=== PATIENT | female | born 1935 | race Caucasian/White ===

== ENCOUNTER 2017-11-06 20:28 | Inpatient (IN) | payer OTHER ==
[~2017-11-06] VITALS: Ht 152.4 cm; Wt 74.8 kg
[2017-11-06] MEDS ORDERED: MORPHINE SULFATE 4 MG/ML CPJ (NOT FOR IM USE) IV STA (21:57)
[2017-11-06] MEDS ORDERED: ONDANSETRON HCL 4MG/2ML INJ IV STA (21:57)
[2017-11-06 23:31] LABS: CHLORIDE 96 mEq/L (98-107)
[2017-11-06 23:33] LABS: BASOPHILS % 0.3 % (0.0-2.0); EOSINOPHILS % 0.7 % (0.0-5.0); HEMATOCRIT. 30.2 % (36.0-48.0); HEMOGLOBIN. 10.4 g/dL (12.0-16.0); LYMPHOCYTES % 12.8 % (20.0-50.0); MEAN CORPUSCULAR HEMOGLOBIN 29.7 pg (28.0-32.0); MEAN CORPUSCULAR VOLUME 86.4 fL (81.0-99.0); MEAN PLATELET VOLUME 8.1 fl (7.4-10.4); MONOCYTES % 5.1 % (2.0-8.0); NEUTROPHILS % 81.1 % (40.0-76.0); PLATELET 224 x1000/uL (130-400); RED BLOOD CELL COUNT 3.49 mill/uL (4.2-5.4); RED CELL DISTRIBUTION WIDTH 13.4 % (11.6-14.6)
[2017-11-07] MEDS ORDERED: ASPIRIN 325MG EC TABLET PO NR
[2017-11-07] MEDS ORDERED: HEPARIN 25,000 UNITS PREMIX 500 ML IV ONE
[2017-11-07] MEDS ORDERED: HEPARIN 5000 UNITS/ML VIAL IV ONE
[2017-11-07] MEDS ORDERED: ONDANSETRON HCL 4MG/2ML INJ IV NR (00:15)
[2017-11-07] MEDS ORDERED: KCL 20MEQ/100ML PREMIX 100 ML IV NR (00:15)
[2017-11-07] MEDS ORDERED: MAGNESIUM 1 G PREMIX 100 ML IV NR (00:15)
[2017-11-07] MEDS ORDERED: ONDANSETRON HCL 4MG/2ML INJ IV PRN (00:30)
[2017-11-07] MEDS ORDERED: MORPHINE SULFATE 4 MG/ML CPJ (NOT FOR IM USE) IV PRN (00:30)
[2017-11-07] MEDS ORDERED: DOCUSATE SODIUM 100MG CAPSULE PO PRN (00:30)
[2017-11-07] MEDS ORDERED: CLONIDINE 0.1MG TABLET PO PRN (00:30)
[2017-11-07] MEDS ORDERED: DEXTROSE 50% WATER 50ML SYRINGE IV PRN (02:30)
[2017-11-07 02:45] VITALS: BP 130/42
[2017-11-07 03:57] VITALS: BP 139/49
[2017-11-07] MEDS ORDERED: NITROGLYCERIN OINT 1GM/INCH UDPKT TD NR (05:00)
[2017-11-07] MEDS ORDERED: HEPARIN 25,000 UNITS PREMIX 500 ML IV SCH (06:30)
[2017-11-07] MEDS: BLOOD SUGAR DIAGNOSTIC STRIP TEST SCH ×4 (06:48→20:25)
[2017-11-07] MEDS ORDERED: HEPARIN 5000 UNITS/ML VIAL IV PRN ×2 (07:00)
[2017-11-07] MEDS ORDERED: HEPARIN 5000 UNITS/ML VIAL IV SCH (07:00)
[2017-11-07] MEDS ORDERED: HEPARIN 25,000 UNITS PREMIX 500 ML IV PRN (07:00)
[2017-11-07 08:00] VITALS: BP 133/56
[2017-11-07] MEDS ORDERED: CLOPIDOGREL 75MG TABLET PO SCH (09:00)
[2017-11-07] MEDS ORDERED: CLOPIDOGREL 75MG TABLET PO NR (09:15)
[2017-11-07 09:16] LABS: PARTIAL THROMBOPLASTIN TIME 23.1 sec (23.4-31.0)
[2017-11-07 09:27] LABS: D-DIMER 1.7 mg/L FEU (<0.50)
[2017-11-07 10:50] LABS: T4 FREE 1.34 ng/dL (0.76-1.46)
[2017-11-07] MEDS: ASPIRIN 81MG TABLET PO SCH (10:59)
[2017-11-07] MEDS: ENOXAPARIN 80MG/0.8ML SYR SUBCUT SCH (11:10)
[2017-11-07] MEDS: SODIUM CHLORIDE 0.9% 1,000 ML IV SCH ×2 (11:11→21:30)
[2017-11-07] MEDS: AMLODIPINE 10MG TABLET PO SCH (11:18)
[2017-11-07 12:00] VITALS: BP 114/44
[2017-11-07] MEDS ORDERED: LEVOFLOXACIN 500MG PREMIX 100 ML IV NR (13:00)
[2017-11-07] MEDS: ACETAMINOPHEN 325MG TABLET PO PRN (13:03)
[2017-11-07] MEDS: PANTOPRAZOLE SODIUM 40 MG/VIAL IV SCH (13:06)
[2017-11-07] MEDS: METRONIDAZOLE 500 MG PREMIX 100 ML IV SCH ×2 (14:15→21:30)
[2017-11-07 15:46] LABS: CREATINE KINASE MB FRACTION 6.8 ng/mL (0.5-3.6)
[2017-11-07 16:00] VITALS: BP 120/37
[2017-11-07 20:00] VITALS: BP 100/45
[2017-11-07] MEDS ORDERED: ATORVASTATIN CALCIUM 20MG TABLET PO SCH (21:00)
[2017-11-08] VITALS: BP 112/51
[2017-11-08 04:00] VITALS: BP 104/53
[2017-11-08] MEDS: METRONIDAZOLE 500 MG PREMIX 100 ML IV SCH ×2 (05:05→14:33)
[2017-11-08] MEDS: BLOOD SUGAR DIAGNOSTIC STRIP TEST SCH ×2 (06:51→12:20)
[2017-11-08 08:00] VITALS: BP 124/49
[2017-11-08] MEDS: PANTOPRAZOLE SODIUM 40 MG/VIAL IV SCH (08:37)
[2017-11-08] MEDS: AMLODIPINE 10MG TABLET PO SCH (08:38)
[2017-11-08] MEDS: ASPIRIN 81MG TABLET PO SCH (08:38)
[2017-11-08] MEDS: ENOXAPARIN 80MG/0.8ML SYR SUBCUT SCH (08:39)
[2017-11-08] MEDS ORDERED: CLOPIDOGREL 75MG TABLET PO SCH (09:00)
[2017-11-08 12:00] VITALS: BP 100/45
[2017-11-08] MEDS ORDERED: LEVOFLOXACIN 250MG PREMIX 50 ML IV SCH (13:00)
[2017-11-08 14:04] VITALS: BP 100/45
[2017-11-08 16:00] VITALS: BP 102/52
[2017-11-08] MEDS: ACETAMINOPHEN 325MG TABLET PO PRN (18:07)
== END 2017-11-08 19:45 | disposition short-term general hospital (02) | DRG 280 ==
LOC: ER 23:24 → EDBEDREQ 11-07 00:23 → SUPCPDRO 11-07 00:29 → 6WST 11-07 01:47 → ENRESERV 11-07 01:47
PROVIDERS: ADMIT Hospitalist; ATTEND Hospitalist
DX: I21.4 Non-ST elevation (NSTEMI) myocardial infarction (principal); I50.31 Acute diastolic (congestive) heart failure; E11.9 Type 2 diabetes mellitus without complications; E78.5 Hyperlipidemia, unspecified; H54.7 Unspecified visual loss; I11.0 Hypertensive heart disease with heart failure; K52.9 Noninfective gastroenteritis and colitis, unspecified; N28.9 Disorder of kidney and ureter, unspecified; R29.6 Repeated falls
CPT/HCPCS: 36415; 70450; 71045; 74150; 80048; 80053; 80061; 82550; 82553; 82962; 83036; 83605; 83690; 83880; 84439; 84443; 84484; 85025; 85379; 85610; 85730; 87040; 87086; 93005; 93306; 93970; 96374; 96375; 99285; C9113; J1644; J1650; J1956; J2270; J2405; J3480; J3490; J7030